=== PATIENT | male | born 2000 | race Caucasian/White ===

== ENCOUNTER 2022-01-11 10:43 | Emergency (ER) | payer OTHER ==
[~2022-01-11] VITALS: Ht 177.8 cm; Wt 115.9 kg
[2022-01-11 11:30] VITALS: BP 152/89
[2022-01-11] MEDS ORDERED: LIDOCAINE 5% TRANSDERMAL PATCH TD ONE (13:15)
[2022-01-11] MEDS ORDERED: IBUPROFEN 600 MG TABLET PO ONE (13:15)
[2022-01-11] MEDS ORDERED: IBUP-2070 PO (13:28)
[2022-01-11] MEDS ORDERED: BACL10TA PO (13:29)
== END 2022-01-11 13:51 | disposition home or self-care (01) ==
LOC: EMS 10:43
DX: M54.50 Low back pain, unspecified (principal)
CPT/HCPCS: 72100; 99283

== ENCOUNTER 2022-06-27 17:33 | Emergency (ER) | payer OTHER ==
[~2022-06-27] VITALS: Ht 177.8 cm; Wt 111.4 kg
[~2022-06-27 17:33] MED LIST: BACL10TA PO; IBUP-1492 PO
[2022-06-27 17:42] VITALS: BP 143/77
[2022-06-27] MEDS ORDERED: IBUPROFEN 600 MG TABLET PO ONE (18:00)
[2022-06-27] MEDS ORDERED: IBUP-1554 PO (18:41)
== END 2022-06-27 18:45 | disposition home or self-care (01) ==
LOC: EMS 17:38
DX: S63.635A Sprain of interphalangeal joint of left ring finger, initial encounter (principal); F12.90 Cannabis use, unspecified, uncomplicated; M20.002 Unspecified deformity of left finger(s); X58.XXXA Exposure to other specified factors, initial encounter; Y93.89 Activity, other specified; Y92.89 Other specified places as the place of occurrence of the external cause; Y99.8 Other external cause status
CPT/HCPCS: 29540; 99283